=== PATIENT | female | born 1975 | race Asian ===

== ENCOUNTER 2017-01-05 08:51 | Emergency (ER) | payer OTHER ==
[~2017-01-05] VITALS: Ht 162.6 cm; Wt 56.7 kg
[2017-01-05] MEDS ORDERED: NKM (08:59)
[2017-01-05 09:19] LABS: APPEARANCE,URINE SLIGHTLY CLOUDY; KETONES,URINE NEGATIVE (NEGATIVE); LEUKOCYTE ESTERASE ,URINE 1+ (NEGATIVE); NITRITE,URINE NEGATIVE (NEGATIVE); PH,URINE 6 (4.5-8.0); PROTEIN,URINE NEGATIVE (NEGATIVE); UROBILINOGEN,URINE 1 MG/DL (0.0-1.0)
[2017-01-05 09:29] LABS: BACTERIA,URINE FEW /HPF; MUCUS,URINE MODERATE /LPF (NONE/OCC); RBC,URINE 0-2 /HPF (0 - 2); SQUAMOUS EPITHELIAL CELL,UR FEW /LPF (NONE/OCC)
[2017-01-05 09:30] VITALS: BP 144/99
[2017-01-05] MEDS ORDERED: Mylanta II UD 30ml ORAL ONE (09:45)
[2017-01-05] MEDS ORDERED: Famotidine 20 MG/ 2ML VIAL IVP ONE (09:45)
[2017-01-05 11:16] LABS: MEAN CORPUSCULAR HGB CONC 32.7 G/DL (32.0-36.0); MEAN CORPUSCULAR VOLUME 92 FL (80-99); MEAN PLATELET VOLUME 7.8 FL (6.5-10.1); PLATELET COUNT 241 K/UL (150-450); RED BLOOD COUNT 4.78 M/UL (4.20-5.40); RED CELL DISTRIBUTION WIDTH 12.8 % (11.6-14.8); WHITE BLOOD COUNT 10.3 K/UL (4.8-10.8)
[2017-01-05 11:26] LABS: ALANINE AMINOTRANSFERASE 14 U/L (3-33); ALBUMIN/GLOBULIN RATIO 1.4 (1.0-2.7); ASPARTATE AMINO TRANSFERASE 31 U/L (5-40); CALCIUM 8.8 mg/dL (8.6-10.2); CARBON DIOXIDE 26 mEQ/L (20-30); CREATININE 0.5 mg/dL (0.5-0.9); GLOMERULAR FILTRATION RATE > 60 mL/min (>60); HEMOLYSIS 179; LIPASE 30 U/L (< 60)
[2017-01-05 11:27] LABS: ANION GAP 14 (5-15); CHLORIDE 99 mEQ/L (98-107); POTASSIUM 5.7 mEQ/L (3.4-4.9); SODIUM 139 mEQ/L (135-145)
[2017-01-05 11:41] LABS: BAND NEUTROPHILS % (MANUAL) 0 % (0-8); BASOPHILS % (MANUAL) 0 % (0-2); EOSINOPHILS % (MANUAL) 1 % (0-3); LYMPHOCYTES % (MANUAL) 7 % (20-45); NEUTROPHILS % (MANUAL) 88 % (45-75); PLATELET ESTIMATE ADEQUATE; PLATELET MORPHOLOGY NORMAL; TOTAL CELLS COUNTED 100
[2017-01-05 12:30] LABS: ALANINE AMINOTRANSFERASE 9 U/L (3-33); ALBUMIN/GLOBULIN RATIO 1.7 (1.0-2.7); ANION GAP 14 (5-15); ASPARTATE AMINO TRANSFERASE 15 U/L (5-40); CALCIUM 8.2 mg/dL (8.6-10.2); CARBON DIOXIDE 26 mEQ/L (20-30); CHLORIDE 99 mEQ/L (98-107); CREATININE 0.5 mg/dL (0.5-0.9); GLOMERULAR FILTRATION RATE > 60 mL/min (>60); HEMOLYSIS 7; POTASSIUM 3.8 mEQ/L (3.4-4.9); SODIUM 139 mEQ/L (135-145)
[2017-01-05] MEDS ORDERED: PEPCID20 MG ORAL (12:34)
[2017-01-05] MEDS ORDERED: ZOFRAN ODT4 MG ORAL (12:34)
[2017-01-05 12:59] VITALS: BP 125/76
[2017-01-05 13:14] VITALS: BP 125/76
--- NOTE | 2017-01-06 07:50 | Emergency Room Report ---
History of Present Illness General Chief Complaint: Abdominal Pain Source: Patient Present Illness HPI 41 YO F presents with "I ate some bad sashimi" last night. A few hours later developed nausea/vomiting, generalized stomach cramps, watery diarrhea. Denies sick contacts. urinary complaints, foreign travel, previous abd/pelvic surgery. Allergies: Coded Allergies: No Known Allergies (Unverified , 01/05/17) Patient History Past Medical History: none Past Surgical History: none Pertinent Family History: none Social History: Denies: alcohol use, drug use, smoking Last Menstrual Period: 12/15/16 Now: No Immunizations: UTD Reviewed Nursing Documentation: PMH: Agreed, PSxH: Agreed Nursing Documentation-PMH Past Medical History: No Stated History Review of Systems All Other Systems: negative except mentioned in HPI Physical Exam Vital Signs Date Time Temp Pulse Resp B/P Pulse Ox O2 Delivery O2 Flow Rate FiO2 01/05/17 08:56 98.8 92 16 144/99 98 Room Air Sp02 EP Interpretation: reviewed, normal General Appearance: normal inspection, well appearing, alert, GCS 15, non-toxic , mild distress Head: normocephalic, atraumatic Eyes: bilateral eye EOMI, bilateral eye PERRL ENT: normal ENT inspection, hearing grossly normal, normal voice Neck: normal inspection, full range of motion, supple, no bony tend Respiratory: normal inspection, lungs clear, normal breath sounds, no respiratory distress, no retraction, no wheezing Cardiovascular #1: regular rate, rhythm, no edema Gastrointestinal: normal inspection, normal bowel sounds, non tender, soft, no mass, no guarding, no hernia, no pulsatile mass, no rebound Genitourinary: no CVA tenderness Musculoskeletal: normal inspection, back normal, normal range of motion, Pippa' s Sign negative Neurologic: normal inspection, alert, oriented x3, responsive, echometer engineer III-XII nml as tested, speech normal Psychiatric: normal inspection, judgement/insight normal, mood/affect normal Skin: normal inspection, normal color, no rash Medical Decision Making Diagnostic Impression: Primary Impression: Gastroenteritis and colitis, viral Additional Impression: Gastroenteritis ER Course VSS. Afebrile. No obvious focal ttp on serial abd exam. urine preg negative. No UTI Labs: No leuks. H&H stable. Initial CMP showed elevated K but was normal on recheck. Likely lab error Feels much better after IVF hydration, meds Tolerating PO DC with BRAT instructions, Pepcid, zofran PRN Last Vital Signs Date Time Temp Pulse Resp B/P Pulse Ox O2 Delivery O2 Flow Rate FiO2 01/05/17 13:14 98.8 77 16 125/76 100 Room Air Status: improved Disposition: HOME, SELF-CARE Condition: Improved Scripts Famotidine (PEPCID) 20 Mg Tablet 20 MG ORAL BID for 7 Days, #14 TAB 0 Refills Prov: LIANNA BOYD M.D. 01/05/17 Ondansetron Odt* (ZOFRAN ODT*) 4 Mg Tab.rapdis 4 MG ORAL BID Y for Nausea & Vomiting, #12 TAB 0 Refills Prov: LIANNA BOYD M.D. 01/05/17 Patient Instructions: Viral Gastroenteritis, Adult, [id number] Additional Instructions: - Take zofran as needed for nausea - BRAT diet - bananas/rice/apple sauce/toast - progress diet slowly - Drink plenty of liquids - Take pepcid twice daily for 1 week - Return to ER for worsening abdominal pain to one particular area of your abdomen, fever/chills, inability to keep water down LIANNA BOYD M.D. Jan 06, 2017 07:50
== END 2017-01-05 13:29 | disposition home or self-care (01) ==
LOC: EMR 09:22
DX: A08.4 Viral intestinal infection, unspecified (principal); K52.9 Noninfective gastroenteritis and colitis, unspecified
CPT/HCPCS: 36415; 80053; 81003; 81025; 83690; 85007; 85025; 96374; 96375; 99284; J2405; S0028